=== PATIENT | male | born 1955 | race Caucasian/White ===

== ENCOUNTER 2017-10-25 09:40 | Observation (INO) | payer BC ==
[~2017-10-25] VITALS: Ht 167.6 cm; Wt 77.1 kg
[~2017-10-25 09:40] MED LIST: ACCUPRIL10 MG PO; ACCUPRIL20 MG PO; ASPIRIN ENTERI325 MG PO; ASPIRIN81 MG PO; CARDIZEM60 MG PO; CLOPIDOGREL75 MG PO; CRESTOR10 MG PO; CRESTOR20 MG PO; ENOXAPARIN60 MG/0.6 SQ; JANUVIA25 MG PO; LEVEMIR100 UNIT/1 SC; METFORMIN HCL500 MG PO; METOPROLOL TART50 MG PO; MULTAQ 400MG T400 MG PO; PLAVIX75 MG PO; PREVACID30 MG PO; SOTALOL80 MG PO; ULTRAM50 MG PO
[2017-10-25] MEDS ORDERED: SODIUM CHLORIDE 0.9% 1000ML 1,000 ML IV ONE (10:00)
[2017-10-25 10:18] LABS: EOSINOPHILS # (AUTO) 0.1 (0.0-0.4); EOSINOPHILS % 1.1 % (0.0-6.0); HEMATOCRIT 15.2 % (38.2-49.6); LYMPHOCYTES # (AUTO) 1.1 (1.0-3.2); LYMPHOCYTES % 22.8 % (18.0-39.1); MEAN CORPUSCULAR HEMOGLOBIN 31.4 pg (28-32); MEAN CORPUSCULAR HGB CONC 32.9 g/dL (31-35); MEAN CORPUSCULAR VOLUME 95.6 fL (81-99); MONOCYTES # (AUTO) 0.4 (0.2-0.8); NEUTROPHILS # (AUTO) 3.1 (2.1-6.9); NEUTROPHILS % 66.4 % (38.7-80.0); PLATELET COUNT 79 x10e3/uL (140-360); RED BLOOD COUNT 1.59 x10e6/uL (4.3-5.7); RED CELL DISTRIBUTION WIDTH 12.9 % (11.7-14.4)
[2017-10-25] MEDS ORDERED: FERROUS SULFAT325 MG PO (10:18)
[2017-10-25] MEDS ORDERED: ATORVASTATIN CA20 MG PO (10:19)
[2017-10-25 10:25] LABS: INR 1.06; PROTHROMBIN TIME 14.4 seconds (11.9-14.5)
[2017-10-25 10:26] LABS: PARTIAL THROMBOPLASTIN TIME 24.1 seconds (23.8-35.5)
[2017-10-25 10:33] LABS: ALANINE AMINOTRANSFERASE 22 IU/L (0-55); ALBUMIN 3.1 g/dL (3.5-5.0); ALBUMIN/GLOBULIN RATIO 1.2 (0.8-2.0); ALKALINE PHOSPHATASE 52 IU/L (40-150); ANION GAP 12.4 mmol/L (8-16); BLOOD UREA NITROGEN 37 mg/dL (7-26); BUN/CREATININE RATIO 46 (6-25); CALCIUM 8.5 mg/dL (8.4-10.2); CARBON DIOXIDE 21 mmol/L (22-29); CHLORIDE 109 mmol/L (98-107); CREATININE, SERUM 0.81 mg/dL (0.72-1.25); EST GLOMERULAR FILTRATION RATE > 60 ML/MIN (60-); GLUCOSE 201 mg/dL (74-118); POTASSIUM 4.4 mmol/L (3.5-5.1); SODIUM 138 mmol/L (136-145)
[2017-10-25 10:38] LABS: TROPONIN I 0.059 ng/mL (0-0.300)
[2017-10-25] MEDS: ONDANSETRON HCL INJ 2 MG/ML VIAL IV STA ×2 (11:00→12:40)
[2017-10-25] MEDS ORDERED: PANTOPRAZOLE 40 MG 10ML VIAL IV ONE (11:06)
[2017-10-25] MEDS ORDERED: PANTOPRAZOLE INJ 80 MG in SODIUM CHLORIDE 0.9% 100 ML IV SCH (11:15)
[2017-10-25] MEDS ORDERED: PANTOPRAZOLE INJ 40 MG in SODIUM CHLORIDE 0.9% 50ML 50 ML IV SCH (11:15)
[2017-10-25] MEDS: SODIUM CHLORIDE 0.9% 1000ML 1,000 ML IV SCH ×2 (12:43→20:49)
[2017-10-25] MEDS: PANTOPRAZOLE INJ 40 MG in SODIUM CHLORIDE 0.9% 50ML 50 ML IV SCH ×3 (12:45→23:53)
[2017-10-25] MEDS ORDERED: SODIUM CHLORIDE 0.9% 250ML 250 ML ONE ×2 (13:48→21:53)
[2017-10-25 20:14] VITALS: BP 104/59
[2017-10-25 20:58] LABS: HEMATOCRIT 18.6 % (38.2-49.6); HEMOGLOBIN 6.5 g/dL (14.0-18.0)
[2017-10-26 03:15] VITALS: BP 125/58
[2017-10-26] MEDS: SODIUM CHLORIDE 0.9% 1000ML 1,000 ML IV SCH ×3 (03:43→18:39)
[2017-10-26] MEDS: PANTOPRAZOLE INJ 40 MG in SODIUM CHLORIDE 0.9% 50ML 50 ML IV SCH ×5 (04:29→22:17)
[2017-10-26 06:13] LABS: BASOPHILS % 0.3 % (0.0-1.0); EOSINOPHILS # (AUTO) 0.2 (0.0-0.4); EOSINOPHILS % 1.5 % (0.0-6.0); LYMPHOCYTES # (AUTO) 1.5 (1.0-3.2); LYMPHOCYTES % 14.1 % (18.0-39.1); MEAN CORPUSCULAR HEMOGLOBIN 29.4 pg (28-32); MEAN CORPUSCULAR HGB CONC 33.2 g/dL (31-35); MEAN CORPUSCULAR VOLUME 88.6 fL (81-99); MONOCYTES # (AUTO) 1.1 (0.2-0.8); MONOCYTES % 9.9 % (4.4-11.3); NEUTROPHILS # (AUTO) 7.5 (2.1-6.9); PLATELET COUNT 271 x10e3/uL (140-360); RED BLOOD COUNT 2.45 x10e6/uL (4.3-5.7); RED CELL DISTRIBUTION WIDTH 16.9 % (11.7-14.4); RETICULOCYTE % 3.5 % (0.8-2.2)
[2017-10-26 06:27] LABS: HEMATOCRIT 21.7 % (38.2-49.6); HEMOGLOBIN 7.2 g/dL (14.0-18.0)
[2017-10-26 06:56] LABS: FERRITIN 47.28 ng/mL (21.81-274.66); FREE T4 (FREE THYROXINE) 0.83 ng/dL (0.8-1.8); THYROID STIMULATING HORMONE 1.791 uIU/mL (0.350-4.940)
[2017-10-26] MEDS ORDERED: DIATRIZOATE MEGL/DIATRIZOA SOD 30 ML BTL PO ONE (06:59)
[2017-10-26 07:36] LABS: BAND NEUTROPHILS % (MANUAL) 3 %; EOSINOPHILS % (MANUAL) 3 % (0-7); LYMPHOCYTES % (MANUAL) 12 % (19-48); METAMYELOCYTES % (MANUAL) 1 % (0-0); MONOCYTES % (MANUAL) 2 % (3.4-9.0); MYELOCYTES % (MANUAL) 1 % (0-0); NEUTROPHILS % (MANUAL) 78 % (40-74); NUCLEATED RED BLOOD CELLS 2
[2017-10-26 07:37] LABS: ANISOCYTOSIS SLIG; POIKILOCYTOSIS SLIGHT; RBC MORPHOLOGY COMMENT NORMAL
[2017-10-26 07:38] LABS: PLATELET ESTIMATE ADEQUATE; PLATELET MORPHOLOGY COMMENT NORMAL
[2017-10-26] MEDS ORDERED: DEXTROSE 50% SYRINGE 50 ML IV PRN ×2 (08:00→08:30)
[2017-10-26 08:05] LABS: HIV 1&2 AB SCREEN NON-REACTIVE (NONREACTIVE)
[2017-10-26 08:45] LABS: FOLATE 13.9 ng/mL (7.0-15.4)
[2017-10-26] MEDS: FERROUS SULFATE 325 MG TAB PO SCH ×2 (10:03→18:19)
[2017-10-26] MEDS: QUINAPRIL HCL 20 MG TAB PO SCH (10:03)
[2017-10-26] MEDS: INSULIN DETEMIR 100 UNIT/ML PEN SQ SCH (10:06)
[2017-10-26 10:07] VITALS: BP 117/61
[2017-10-26] MEDS: SOTALOL HCL 80 MG TAB PO SCH ×2 (10:07→18:19)
--- NOTE | 2017-10-26 10:14 | Diagnostic Imaging Report ---
PROCEDURE: CT ABDOMEN AND PELVIS WITHOUT CONTRAST TECHNIQUE: The abdomen and pelvis were scanned utilizing a multidetector helical scanner from the diaphragm to the lesser trochanter after the oral administration of Gastroview and water. No IV contrast was administered as per physician request. Coronal and sagittal multiplanar reformations were obtained. COMPARISON: None. INDICATIONS: ANEMIA FINDINGS: ABSENCE OF INTRAVENOUS CONTRAST DECREASES SENSITIVITY FOR DETECTION OF FOCAL LESIONS AND VASCULAR PATHOLOGY. LOWER THORAX: Bibasilar atelectasis. Partial visualized cardiac pacing leads. HEPATOBILIARY: No focal hepatic lesions. No biliary ductal dilatation. SPLEEN: No splenomegaly. PANCREAS: No focal masses or ductal dilatation. ADRENALS: No adrenal nodules. KIDNEYS/URETERS: No hydronephrosis, stones, or solid mass lesions. Bilateral perinephric soft tissue inflammatory changes. PELVIC ORGANS/BLADDER: Unremarkable. PERITONEUM / RETROPERITONEUM: No free air or fluid. LYMPH NODES: No lymphadenopathy. VESSELS: Aortoiliac atherosclerotic calcifications. Bilateral renal artery calcifications. Left external iliac artery stent. GI TRACT: No distention or wall thickening. No appendix is visualized. Moderate amount of retained feces limit intraluminal evaluation of the colon. No air-fluid levels. No appendix is visualized. BONES AND SOFT TISSUES: Degenerative changes of the lumbar spine. IMPRESSION: No acute abnormality of the abdomen and pelvis. Dictated by: David Zaldivar M.D. on 10/26/2017 at 10:23 Electronically approved by: David Zaldivar M.D. on 10/26/2017 at 10:23
[2017-10-26] MEDS ORDERED: SODIUM CHLORIDE 0.9% 250ML 250 ML ONE ×3 (10:53→19:47)
[2017-10-26] MEDS: INSULIN REGULAR, HUMAN 100 UNIT/1 ML 3ML VIAL SQ SCH ×6 (11:30→21:16)
--- NOTE | 2017-10-26 12:59 | History and Physical ---
PRIMARY CARE PHYSICIAN: Dr. Jatinder Pires. CHIEF COMPLAINT: Passing out. HISTORY OF PRESENT ILLNESS: This is a 62-year-old man with a history of severe anemia requiring blood transfusion, last transfusion about 3 years ago, with multiple endoscopies including pill endoscopy, all being negative and now passing out at home. Patient stated that he passed out for a few seconds, did not hit his head, brought to the hospital, found to have hemoglobin of 5.0, and he was transfused blood. He denies any chest pain, denies any melena, and denies any hematochezia. He does take iron pills, which he has been taking for several years. Denies any hematochezia or active blood loss. I will update further dictation to his deboner Dr. Garcia. PAST MEDICAL HISTORY: Severe anemia, hypertension, history of PE, myocardial infarction status post coronary artery bypass grafting and stents in 2016, peripheral vascular disease status post stents, paroxysmal arterial fibrillation, acute kidney injury, and sick sinus syndrome status post permanent pacemaker placement. PAST SURGICAL HISTORY: Permanent pacemaker placement, coronary artery stenting, and peripheral artery stenting. ALLERGIES: PER ELECTRONIC MEDICAL RECORDS. FAMILY HISTORY/SOCIAL HISTORY: Patient is single. He has no alcohol or illicit. He quit cigarettes. MEDICATIONS: Per electronic medical record. REVIEW OF SYSTEMS: Denies any dizziness or chest pain. PHYSICAL EXAMINATION VITAL SIGNS: Reviewed. GENERAL: A tired-appearing man resting in bed. HEENT: Anicteric. Pupils responsive to light. No oral lesions. CARDIOVASCULAR: Normal S1 and S2. LUNGS: Moderate breath sounds. ABDOMEN: Soft, nontender, and nondistended. EXTREMITIES: No edema or calf tenderness. NEUROLOGIC: He is alert and oriented x3. He moved all extremities. SKIN: Dry. PSYCHIATRIC: Flat affect. LABS: Reviewed. MEDICATIONS: Reviewed. ASSESSMENT AND PLAN: This is a 62-year-old man with: 1. Syncope, unclear whether patient lost consciousness, but definitely symptoms would have been related to severe anemia. We will transfuse him now and get physical therapy on board. We will also obtain a 2D echocardiogram to evaluate his heart function. 2. Cerebrovascular accident, normocytic anemia, hemoglobin 5.0. He received blood transfusion 3 units, re-tested, and is 7.2. We will consult Dr. Garcia, his deboner. We will continue IV PPI drip. We will hold aspirin and we will hold Plavix. 3. Diabetes mellitus type 2. We will get his hemoglobin A1c and lipid panel. We will hold all anti-glycemic agents. 4. Paroxysmal atrial fibrillation. Heart rate is currently controlled. We will monitor. We will continue sotalol. 5. Hypertension. He is on quinapril. 6. Positive stool occult blood. GI consultation. 1. Follow up hepatitis panel and other serologic tests. 2. Prophylaxis. He will be on sequential compression devices and he is on IV PPI. Job#: [id number] VAS
[2017-10-26] MEDS ORDERED: ACETAMINOPHEN 325 MG TAB PO PRN (15:45)
[2017-10-26 16:06] VITALS: BP 117/61
[2017-10-26 16:17] VITALS: BP 117/61
[2017-10-26 17:26] VITALS: BP 129/58
[2017-10-26] MEDS ORDERED: ATORVASTATIN 20 MG TAB PO SCH (21:00)
[2017-10-27 00:40] LABS: HEMATOCRIT 27.3 % (38.2-49.6); HEMOGLOBIN 9.6 g/dL (14.0-18.0)
[2017-10-27] MEDS: PANTOPRAZOLE INJ 40 MG in SODIUM CHLORIDE 0.9% 50ML 50 ML IV SCH ×2 (00:40→10:25)
[2017-10-27] MEDS: SODIUM CHLORIDE 0.9% 1000ML 1,000 ML IV SCH ×4 (02:45→23:30)
[2017-10-27 06:22] LABS: HEMATOCRIT 26.6 % (38.2-49.6); HEMOGLOBIN 9.2 g/dL (14.0-18.0)
[2017-10-27] MEDS: FERROUS SULFATE 325 MG TAB PO SCH (09:10)
[2017-10-27] MEDS: INSULIN REGULAR, HUMAN 100 UNIT/1 ML 3ML VIAL SQ SCH ×4 (09:10→21:50)
[2017-10-27] MEDS: QUINAPRIL HCL 20 MG TAB PO SCH (09:10)
[2017-10-27] MEDS: INSULIN DETEMIR 100 UNIT/ML PEN SQ SCH (09:11)
[2017-10-27] MEDS: SOTALOL HCL 80 MG TAB PO SCH (09:11)
[2017-10-27] MEDS ORDERED: SODIUM CHLORIDE 0.9% 500ML 500 ML ONE (14:22)
[2017-10-27] MEDS ORDERED: DEXTROSE 50% SYRINGE 50 ML IV PRN (15:30)
[2017-10-27] MEDS ORDERED: ACETAMINOPHEN 325 MG TAB PO PRN (15:30)
[2017-10-27] MEDS: PANTOPRAZOL 40MG/SOD CHL 0.9% 50 ML IV SCH ×2 (15:32→20:35)
--- NOTE | 2017-10-27 16:43 | Operative Report ---
DATE OF PROCEDURE: October 27, 2017 PROCEDURE PERFORMED: Esophagogastroduodenoscopy. PREOPERATIVE DIAGNOSIS: Gastrointestinal bleeding. POSTOPERATIVE DIAGNOSES 1. Hiatal hernia. 2. Reflux esophagitis. 3. Gastritis with several small erosions. No blood is present in the esophagus, stomach, or duodenum. No bleeding lesions including Dieulafoy lesions were found. No angiodysplasia was seen in the small intestines. PREOPERATIVE MEDICATIONS: Consisted of general anesthesia. DESCRIPTION OF PROCEDURE: Using the Olympus PixelFlow video gastroscope, it was inserted into the patient's oropharynx and advanced to the hypopharynx and down into the esophagus. The mucosa found in the esophagus was normal until we got to the GE junction. Little bit of irritation right there from reflux right above a sliding-type hiatal hernia at 40-41 cm. The stomach was entered and insufflated with air. The mucosa around the cardia, fundus, body, and the antrum was viewed. There was evidence of a gastritis with small erosions in the antrum but overall no significant ulcerations, bleeding lesions, or tumor masses were encountered. Biopsy was obtained down in the antrum looking for the H. pylori infection. The motility was normal. The pylorus was visualized and entered. The duodenal bulb and postbulbar duodenum were found to be within normal limits. There was no evidence of any angiodysplasia found. No blood was present down in the duodenum. The endoscope was withdrawn back up into the stomach, retroflexed viewing the EG junction, cardia, and fundus from below. Again, the hiatal hernia was seen as well as the gastritis, but no other disease process was encountered. The gastroscope was withdrawn back up into the esophagus, hypopharynx, oropharynx, and the patient's mouth, and the procedure was ended. In conclusion, we have no evidence of an acute GI bleed. We have gastritis with small erosions throughout the stomach. No evidence of any bleeding. We have a hiatal hernia with a small amount of reflux esophagitis and a normal duodenum. Job#: [id number] CYNDI
[2017-10-27] MEDS ORDERED: FERROUS SULFATE 325 MG TAB PO SCH (17:00)
[2017-10-27] MEDS ORDERED: SOTALOL HCL 80 MG TAB PO SCH (17:00)
[2017-10-27 17:01] VITALS: BP 129/61
[2017-10-27 17:12] VITALS: BP 129/61
[2017-10-27] MEDS ORDERED: MIDAZOLAM HCL 2 MG/2 ML VIAL ONE (17:40)
[2017-10-27 18:09] LABS: HEMATOCRIT 27.2 % (38.2-49.6); HEMOGLOBIN 9.2 g/dL (14.0-18.0)
[2017-10-27 20:00] VITALS: BP 104/55
[2017-10-27] MEDS ORDERED: ATORVASTATIN 20 MG TAB PO SCH (21:00)
[2017-10-27 22:20] LABS: HEMOGLOBIN 10.6 g/dL (14.0-18.0)
[2017-10-28] VITALS: BP 11/59
[2017-10-28] MEDS: PANTOPRAZOL 40MG/SOD CHL 0.9% 50 ML IV SCH ×2 (01:46→05:53)
[2017-10-28 04:00] VITALS: BP 106/53
[2017-10-28] MEDS: SODIUM CHLORIDE 0.9% 1000ML 1,000 ML IV SCH (05:53)
[2017-10-28 06:55] LABS: BASOPHILS % 0.5 % (0.0-1.0); EOSINOPHILS # (AUTO) 0.2 (0.0-0.4); EOSINOPHILS % 2.6 % (0.0-6.0); HEMATOCRIT 29.6 % (38.2-49.6); LYMPHOCYTES % 11.9 % (18.0-39.1); MEAN CORPUSCULAR HEMOGLOBIN 30.3 pg (28-32); MEAN CORPUSCULAR HGB CONC 33.8 g/dL (31-35); MEAN CORPUSCULAR VOLUME 89.7 fL (81-99); MONOCYTES # (AUTO) 0.9 (0.2-0.8); NEUTROPHILS # (AUTO) 6.3 (2.1-6.9); NEUTROPHILS % 73.2 % (38.7-80.0); PLATELET COUNT 262 x10e3/uL (140-360); RED CELL DISTRIBUTION WIDTH 17.9 % (11.7-14.4)
[2017-10-28 07:23] LABS: BLOOD UREA NITROGEN 13 mg/dL (7-26); BUN/CREATININE RATIO 17 (6-25); CALCIUM 8.3 mg/dL (8.4-10.2); CARBON DIOXIDE 22 mmol/L (22-29); CHLORIDE 113 mmol/L (98-107); CREATININE, SERUM 0.78 mg/dL (0.72-1.25); EST GLOMERULAR FILTRATION RATE > 60 ML/MIN (60-); GLUCOSE 138 mg/dL (74-118); SODIUM 143 mmol/L (136-145)
[2017-10-28 08:25] VITALS: BP 130/60
[2017-10-28] MEDS ORDERED: INSULIN DETEMIR 100 UNIT/ML PEN SQ SCH ×2 (09:00→10:24)
[2017-10-28] MEDS ORDERED: QUINAPRIL HCL 20 MG TAB PO SCH ×3 (09:00→10:23)
[2017-10-28 11:41] VITALS: BP 153/68
[2017-10-28] MEDS ORDERED: DEXTROSE 50% SYRINGE 50 ML IV PRN (12:30)
[2017-10-28] MEDS ORDERED: ACETAMINOPHEN 325 MG TAB PO PRN (12:45)
[2017-10-28 13:00] LABS: HEMOGLOBIN 10.3 g/dL (14.0-18.0)
[2017-10-28] MEDS: INSULIN REGULAR, HUMAN 100 UNIT/1 ML 3ML VIAL SQ SCH ×2 (13:02→17:02)
[2017-10-28 15:15] VITALS: BP 124/59
[2017-10-28] MEDS ORDERED: FERROUS SULFATE 325 MG TAB PO SCH (17:00)
[2017-10-28] MEDS ORDERED: SOTALOL HCL 80 MG TAB PO SCH ×2 (17:00)
[2017-10-28] MEDS ORDERED: ATORVASTATIN 20 MG TAB PO SCH (21:00)
--- NOTE | 2017-10-29 00:09 | Progress Note ---
DATE: No dictation (length 00:14). Job#: [id number] GE
--- NOTE | 2017-10-29 00:12 | Discharge Summary ---
PCP: Dr. Treva Pires MACHINIST CLASS B: Dr. Sandip Mccarty, Dr. Brian Garcia. Patient came in initially with anemia and possible GI bleed. Patient was seen by Dr. Garcia, and was started on Protonix IV drip. Colonoscopy will not be able to be done due to the patient is on Plavix, and needs to be at least 7-10 days off Plavix before he can proceed to do a colonoscopy. Therefore, Dr. Garcia has cleared him to be discharged and follow up with him as an outpatient. Dr. Mccarty has also cleared him for discharge. Patient did receive blood transfusion. Patient has a long-standing history of CABG, CAD, sick sinus syndrome, pacemaker, anemia, hypertension, DVT with status post stent placement. Patient has responded well to medical management. PHYSICAL EXAMINATION VITALS: Today's vital signs are temperature 98.1, pulse 70, blood pressure 130/60, respirations 18, and satting 96% on room air. GENERAL: Patient is awake, alert and oriented times 3. LUNGS: Clear to auscultation bilaterally with normal respiratory effort. HEENT: Extraocular muscles are intact. ABDOMEN: Soft. Bowel sounds present. It is nontender and nondistended. CARDIOVASCULAR: Regular rate and rhythm. NECK: Supple. Trachea midline. EXTREMITIES: No calf tenderness. NEUROLOGICAL: Nonfocal. LABS: Sodium 143, potassium 4, chloride 113, CO2 22, BUN 13, creatinine 0.78, glucose 138. White count 8.52, hemoglobin 10, hematocrit 29.6, and platelets 262,000. DISCHARGE DIAGNOSES 1. Syncope secondary to anemia. 2. Diabetes mellitus, type 2. 3. Atrial fibrillation. DICTATED BY ROSS PORTILLO NP TREVA BRENNAN MD Job#: [id number] MEE
[2017-10-29] MEDS ORDERED: INSULIN DETEMIR 100 UNIT/ML PEN SQ SCH ×2 (09:00)
--- NOTE | 2017-10-31 13:51 | Consultation ---
DATE OF CONSULTATION: October 26, 2017 CONSULTATION TO: Dr. Steven Guy is a 62-year-old white male who was referred to me for evaluation of anemia. No history of hematochezia, melena, hematuria, hematemesis or hemoptysis. The patient claims that he had multiple upper endoscopies and lower endoscopies including camera; however, nothing was ever recorded to be positive. Subsequently brought as the patient's hemoglobin was 7.2. SOCIAL HISTORY: Noncontributory. FAMILY HISTORY: Noncontributory. ALLERGIES: NONE. MEDICATIONS AT THIS TIME 1. Protonix. 2. Atorvastatin. 3. Quinapril. 4. Sotalol. 5. Insulin. 6. Ferrous sulfate. REVIEW OF SYSTEMS HEENT: Normal. CARDIAC: History of hypertension. History of CABG. RESPIRATORY: History of PE. GI: Multiple GI bleeds. : Normal. MUSCULOSKELETAL: Normal. SKIN AND BREASTS: Normal. NEUROENDOCRINE: History of diabetes mellitus. PHYSICAL EXAMINATION GENERAL: Moderately built male. Anemic. No palpable adenopathy. HEART: Within normal limits. CHEST: Midline scar of surgery over the chest is seen. Pacemaker is seen. ABDOMEN: Soft. There is no hepatosplenomegaly. RECTAL: Exam deferred. CENTRAL NERVOUS SYSTEM: Essentially normal. EXTREMITIES: Essentially normal. LABORATORY DATA: Hemoglobin of 7.2, hematocrit 21.7, white count 10,800, platelets of 271,000. Indices still remain normal. INR 1.06. Bilirubin 0.3, SGOT 19, alkaline phosphatase 52, SGPT 22. Sodium 138, potassium 4.4, chloride 79, CO2 21, BUN 37, creatinine 0.8. Glucose high at 201. Stool for occult blood is positive. IMPRESSION 1. Anemia, normochromic and normocytic. 2. History of hypertension. 3. History of pulmonary embolus. 4. History of coronary artery bypass graft. 5. History of coronary stents. 6. History of atrial fibrillation. 7. History of pacemaker insertion. 8. Hypoproteinemia (5.7). 9. Hypoalbuminemia (3.1). 10. Diabetes mellitus insulin dependent. 11. Gastrointestinal bleed. Stool for occult blood positive. 12. 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 PLAN: Give him blood transfusion to keep the hemoglobin above 8 to 9 g. Upper endoscopy definitely is suggested. The bleeding is possibly because of AVM. He also has to take Plavix for the stenting which he had. I will confine myself to hematology. Job#: [id number] cc:MD SHERWIN [place]TA[place] M.D.
== END 2017-10-28 18:40 | disposition home or self-care (01) ==
LOC: ER 09:40 → ERHOLD 11:31 → UNDOADMIN 11:31 → OR 10-27 11:29 → UNDOADMOB 10-27 13:35 → IMCU 10-27 13:35
PROVIDERS: ADMIT Internal Medicine; ATTEND Internal Medicine
DX: D64.9 Anemia, unspecified (principal); K29.00 Acute gastritis without bleeding; K21.0 Gastro-esophageal reflux disease with esophagitis; K44.9 Diaphragmatic hernia without obstruction or gangrene; K92.2 Gastrointestinal hemorrhage, unspecified; Z86.711 Personal history of pulmonary embolism; I25.2 Old myocardial infarction; I48.0 Paroxysmal atrial fibrillation; Z95.1 Presence of aortocoronary bypass graft; I73.9 Peripheral vascular disease, unspecified; Z95.0 Presence of cardiac pacemaker; R55 Syncope and collapse; Z86.73 Personal history of transient ischemic attack (TIA), and cerebral infarction without residual deficits; E11.9 Type 2 diabetes mellitus without complications; I10 Essential (primary) hypertension; E77.8 Other disorders of glycoprotein metabolism; E88.09 Other disorders of plasma-protein metabolism, not elsewhere classified; Z79.4 Long term (current) use of insulin; Z79.01 Long term (current) use of anticoagulants; D69.6 Thrombocytopenia, unspecified
CPT/HCPCS: 36430; 43239; P9016; 36415; 74176; 80048; 80053; 82270; 82607; 82728; 82746; 82948; 83036; 83540; 84439; 84443; 84466; 84484; 85014; 85018; 85025; 85045; 85610; 85730; 86039; 86431; 86704; 86706; 86803; 86850; 86900; 86920; 86922; 87340; 87390; 88305; 88312; 93005; 93306; 96360; 96374; 99284; G0378; G0433; G0435; J2250; J2405; J7030; J7040; J7050

== ENCOUNTER 2018-03-10 10:31 | Observation (INO) | payer BC ==
[2018-03-10] VITALS (14 sets, daily range): BP systolic 120–152; BP diastolic 65–85
[~2018-03-10] VITALS: Ht 167.6 cm; Wt 85.0 kg
[~2018-03-10 10:31] MED LIST changes: +ATORVASTATIN CA20 MG PO; +FERROUS SULFAT325 MG PO
--- OUTSIDE RECORDS SUMMARY | 2018-03-10 10:33 | XMS REPORT ---
Author Author [facility] Address Unknown Phone Unavailable Care Team Providers Care Director Child Abuse Therapy Name Role Phone TREVA BRENNAN Unavailable Unavailable Problems This patient has no known problems. Allergies, Adverse Reactions, Alerts This patient has no known allergies or adverse reactions. Medications This patient has no known medications. Results Test Description Test Time Test Comments Text Results Atomic Results Result Comments CT ABDOMEN/PELVIS WO [place] [address] Patient Name: ANH RANGEL MR #: [id number] : 1955 Age/Sex: 62/M Req #: [id number] Adm Physician: TREVA BRENNAN MD Ordered by: JHONY TORIBIO MD Report #: [id number] Location: [facility] Room/Bed: [place] [address] _ Procedure: [id number] CT/CT ABDOMEN/PELVIS WO Exam Date: 10/26/17 Exam Time: 0825 REPORT STATUS: Signed PROCEDURE: CT ABDOMEN AND PELVIS WITHOUT CONTRAST TECHNIQUE: The abdomen and pelvis were scanned utilizing a multidetector helical scanner from the diaphragm to the lesser trochanter after the oral administration of Gastroview and water. No IV contrast was administered as per physician request. Coronal and sagittal multiplanar reformations were obtained. COMPARISON: None. INDICATIONS: ANEMIA FINDINGS: ABSENCE OF INTRAVENOUS CONTRAST DECREASES SENSITIVITY FOR DETECTION OF FOCAL LESIONS AND VASCULAR PATHOLOGY. LOWER THORAX: Bibasilar atelectasis. Partial visualized cardiac pacing leads. HEPATOBILIARY: No focal hepatic lesions. No biliary ductal dilatation. SPLEEN: No splenomegaly. PANCREAS: No focal masses or ductal dilatation. ADRENALS: No adrenal nodules. KIDNEYS/URETERS: No hydronephrosis, stones, or solid mass lesions. Bilateral perinephric soft tissue inflammatory changes. PELVIC ORGANS/BLADDER: Unremarkable. PERITONEUM / RETROPERITONEUM: No free air or fluid. LYMPH NODES: No lymphadenopathy. VESSELS: Aortoiliac atherosclerotic calcifications. Bilateral renal artery calcifications. Left external iliac artery stent. GI TRACT: No distention or wall thickening. No appendix is visualized. Moderate amount of retained feces limit intraluminal evaluation of the colon. No air-fluid levels. No appendix is visualized. BONES AND SOFT TISSUES: Degenerative changes of the lumbar spine. IMPRESSION: No acute abnormality of the abdomen and pelvis. Dictated by: Yaquelin Trejo M.D. on 10/26/2017 at 10:23 Electronically approved by: Yaquelin Trejo M.D. on 10/26/2017 at 10:23 Dictated By: YAQUELIN TREJO MD 1023 Transcribed By: JUANCARLOS on 10/26/17 1023 COPY TO: JHONY TORIBIO MD
--- OUTSIDE RECORDS SUMMARY | 2018-03-10 10:33 | XMS REPORT | Clinical Summary ---
Author Author [facility] [employer] [facility] Address Unknown Phone Unavailable Care Team Providers Care Underwater Welder Name Role Phone PCP Unavailable Allergies No Known Allergies Current Medications Prescription Sig. Disp. Refills Start End Date Status Date metFORMIN (GLUCOPHAGE) Take 1,000 mg by mouth 2 Active 1000 MG tablet (two) times daily with breakfast and dinner. clopidogrel (PLAVIX) 75 Take 75 mg by mouth daily Active mg tablet Last dose taken April 23, 2016 . aspirin 81 MG EC tablet Take 81 mg by mouth Active daily. rosuvastatin (CRESTOR) 20 Take 20 mg by mouth Active MG tablet daily. metoprolol (LOPRESSOR) 50 Take 50 mg by mouth 2 Active MG tablet (two) times daily. quinapril (ACCUPRIL) 20 Take 20 mg by mouth daily Active MG tablet . sitaGLIPtin (JANUVIA) 100 Take 100 mg by mouth Active MG tablet daily. nitroglycerin (NITROSTAT) Place 0.4 mg under the Active 0.4 MG SL tablet tongue every 5 (five) minutes as needed for Chest pain Put 1 pill under tongue every 5min as needed for chest pain.No more than 3 doses in 15min.Call 911 if pain is unrelieved 5min after 1st dose . insulin detemir (LEVEMIR) Inject 10 Units Active 100 unit/mL (3 mL) InPn subcutaneously nightly. injection dronedarone (MULTAQ) 400 Take 1 tablet (400 mg 60 tablet 1 05/17/20 Active mg tablet total) by mouth 2 (two) 16 times daily with breakfast and dinner. diltiazem (CARDIZEM) 60 Take 1 tablet (60 mg 120 tablet 1 05/17/05/17/20 MG tablet total) by mouth every 6 16 17 (six) hours. furosemide (LASIX) 40 MG Take 1 tablet (40 mg 30 tablet 1 05/17/20 05/17/20 tablet total) by mouth daily. 16 17 Active Problems Problem Noted Date Atrial fibrillation ([facility]) 05/12/2016 Postoperative anemia 05/12/2016 Coronary artery disease of [place] artery of [place] heart with stable angina 05/01/2016 pectoris ([facility]) Insulin dependent diabetes mellitus ([facility]) 05/01/2016 Angina of effort ([facility]) 05/01/2016 H/O non-ST elevation myocardial infarction (NSTEMI) 05/01/2016 PVD (peripheral vascular disease) ([facility]) 05/01/2016 Essential hypertension 05/01/2016 Social History Tobacco Use Types Packs/Day Years Used Date Former Smoker 1 5 05/01/2010 - 10/01/2015 Smokeless Tobacco: Never Used Alcohol Use Drinks/Week oz/Week Comments Yes 3 Cans of 1.8 beer Sex Assigned at Date Recorded Not on file Last Filed Vital Signs Not on file Plan of Treatment Health Maintenance Due Date Last Done Comments INFLUENZA VACCINE 07/19/2018 Results Not on fileafter 03/09/2017
[2018-03-10] MEDS ORDERED: LIDOCAINE HCL 2% LOCAL 20 ML VIAL ONE (11:44)
[2018-03-10] MEDS ORDERED: FAMOTIDINE 20 MG TAB ONE (11:44)
[2018-03-10] MEDS ORDERED: LORAZEPAM INJ 2 MG/ML VIAL ONE (11:44)
[2018-03-10] MEDS ORDERED: SODIUM CHLORIDE 0.9% 1000ML 1,000 ML ONE ×2 (11:45→15:02)
[2018-03-10] MEDS ORDERED: MIDAZOLAM HCL 2 MG/2 ML VIAL ONE ×2 (11:45→14:10)
[2018-03-10] MEDS ORDERED: HEPARIN SOD/SOD CHLORIDE 2,000 ML ONE (11:45)
[2018-03-10] MEDS ORDERED: IOPAMIDOL 300MG/ML 100 ML INFUS..BTL IV ONE ×3 (11:45→13:00)
[2018-03-10] MEDS ORDERED: FENTANYL CITRATE/PF 100MCG/2 ML INJ ONE (11:46)
[2018-03-10] MEDS ORDERED: NITROGLYCERIN/D5W 200 MCG/ML 0 ML ONE (13:16)
[2018-03-10] MEDS ORDERED: HEPARIN SOD (PORCINE) 1000 UNIT/ML 30ML ONE (13:16)
[2018-03-10] MEDS ORDERED: BIVALIRUDIN 250 MG/VIAL IV ONE (13:20)
[2018-03-10] MEDS ORDERED: SODIUM CHLORIDE 0.9% 50ML 50 ML ONE (13:21)
[2018-03-10] MEDS ORDERED: CEFAZOLIN SOD 1 GM VIAL ONE (14:31)
[2018-03-10] MEDS ORDERED: ASPIRIN 81 MG CHEW TAB ONE (14:39)
[2018-03-10] MEDS ORDERED: CLOPIDOGREL BISULFATE 75 MG TAB ONE (14:39)
[2018-03-10] MEDS ORDERED: NITROGLYCERIN 400 MCG/SPRAY 4.9 GM BTL ONE (14:41)
[2018-03-10] MEDS ORDERED: DEXTROSE 5%/0.225% SOD CHL 1,000 ML IV SCH (15:00)
--- OUTSIDE RECORDS SUMMARY | 2018-03-10 17:35 | XMS REPORT | Clinical Summary ---
Author Author [facility] [facility] Address Unknown Phone Unavailable Care Team Providers Care Cannery Tender Engineer Name Role Phone PCP Unavailable Allergies No [...] Active Problems Problem Noted Date Atrial fibrillation ([facility]) 05/12/2016 Postoperative anemia 05/12/2016 Coronary artery disease of [place] artery of [place] heart with stable angina 05/01/2016 pectoris ([facility]) Insulin dependent diabetes mellitus ([facility]) 05/01/2016 Angina of effort ([facility]) 05/01/2016 H/O non-ST elevation myocardial infarction (NSTEMI) 05/01/2016 PVD (peripheral vascular disease) ([facility]) 05/01/2016 Essential hypertension 05/01/2016 Social History [...]
[2018-03-11] VITALS: BP 129/62
[2018-03-11] MEDS ORDERED: SODIUM CHLORIDE 0.9% 1000ML 1,000 ML IV SCH
[2018-03-11] MEDS: HYDROCODONE/APAP 5MG-325MG TAB PO PRN ×2 (00:50→07:10)
[2018-03-11 01:00] VITALS: BP 138/85
[2018-03-11 04:00] VITALS: BP 149/67
[2018-03-11 07:10] VITALS: BP 167/82
--- NOTE | 2018-03-14 13:44 | Operative Report ---
DATE OF PROCEDURE: March 10, 2018 PREOPERATIVE DIAGNOSES 1. Severe peripheral vascular disease with claudication and resting pain of the right lower extremity.. 2. Coronary artery disease. 3. Sick sinus syndrome with permanent pacemaker. 4. Diabetes mellitus. 5. Hyperlipidemia.. PROCEDURES 1. Pelvic angiogram. 2. Right iliofemoral angiogram. 3. Angioplasty and stenting of the right superficial femoral artery. 4. Angiogram of the left iliac femoral artery and angioplasty of the left iliac artery. DESCRIPTION OF PROCEDURE: After the patient had received moderate sedation and prepping and draping was performed, the left inguinal area was infiltrated with local lidocaine. The left femoral artery was approached with micropuncture followed by introduction of a 6-Ecuadorean arterial sheath. Under modified Seldinger technique, a 5-Ecuadorean Omniflush diagnostic angiography catheter was then introduced and positioned in the lower abdominal aorta for pelvic angiogram and with introduction of 0.035 Advantage guidewire the Omniflush catheter was then advanced into the right external iliac artery and the angiogram of the right femoral artery was performed. Review of the diagnostic studies revealed the following: There was a small abdominal aortic aneurysm just above the iliac bifurcation. The right common and external iliac artery showed some mild plaque formation amounting to about 30% stenotic areas. The right superficial femoral artery started with severe stenosis right at the takeoff and subtotal to total occlusion all the way to the area of the Arpit's canal. The distal right femoral artery, popliteal and the tibioperoneal arteries, however, filled through collaterals from the profunda branch. The distal right superficial femoral and ____ had about 30% narrowing. There was no significant stenosis in the tibioperoneal vessels showing a runoff into the region of the foot from the dorsalis pedis and posterior tibial branches without any significant flow impairment. The right superficial femoral artery showed extensive calcification and was also subtotal to total occlusion in the previously placed stent in the mid to distal portion of the right superficial femoral artery. The right common iliac artery showed a segmental narrowing of the more distal segment extending into the proximal portion of the previously placed iliac stent amounting to 50% to 70% stenosis. As seen on the angiogram, there was some mild plaquing in the right common femoral artery. The stent in the left superficial femoral artery was identified and was patent. There was about a 50% stenosis in the mid portion of the left profunda branch with some post traumatic dilatation. After review of the diagnostic study and considering the patient's symptoms, was felt the patient should benefit from intervention. He was started on Angio-Max bolus drip and the 6-Ecuadorean arterial sheath was exchanged with a 6-Ecuadorean [place] Destination cross-over sheath, 45 cm in length over the previously placed Advantage guidewire. The guidewire was able to be advanced without any significant resistance into the right popliteal artery and angioplasty was performed using Lutonix balloon catheter starting at the Arpit's canal and to the proximal portion including the previously placed stent. There appeared to be a successful dilatation of the segment and the same balloon catheter was then advanced more proximal to cover the whole extent of the subtotal occlusion. However, after repeat angiogram it was noted there was still severe intraluminal stenosis along the previously noted subtotal occlusion. Therefore, stenting was necessary and the first LifeStent XL peripheral stent 6 x 170 mm was positioned in the more distal portion and it deployed successfully followed by a 6 x 150 mm LifeStent peripheral stent in the more proximal portion. Post dilatation was performed by using an Ultraverse balloon catheter 5 mm x 200 mm. After completion of the stenting and post dilatation angiogram was performed, which showed a very good result with only mild stenotic area of about 20% at the proximal portion and a 30% focal stenosis in the distal portion. However, there was excellent runoff in some of the areas which showed residual stenosis, but mostly related to the extensive calcification of the vessel. The procedure was then terminated. Restoring the [place] catheter and performing a left inguinal area angiogram in the left anterior oblique position prior to closure of the left femoral artery with Angio-Seal, model Evolution. After adequate hemostasis was achieved, the patient was given 300 mg of Plavix and 81 mg of aspirin per orally and dressing was applied and the patient was transferred to the observation area in stable condition. However, I also need to mention that prior to the closure of the left femoral artery balloon angioplasty of the left iliac artery was also performed because of the significant stenotic areas as described above in the left common iliac artery and the ostial portion of the left the iliac stent. This angioplasty was performed using a 5 mm x 40 mm Ultraverse balloon catheter resulting in an excellent result and there was no residual stenosis. IMPRESSION: 1. Severe peripheral vascular disease with subtotal to total occlusion of the right superficial femoral artery successfully treated with angioplasty and stenting. 2. Severe stenotic area of the left iliac artery and proximal portion of the left iliac stent successfully treated with angioplasty. 3. Small infrarenal abdominal aortic aneurysm which will be followed closely with ultrasound studies and if necessary with using a CT scan. The information was related to the patient and the patient's family and he will be followed closely as outpatient after 24 hour observation and hopefully discharged at that time. Job#: [id number] JT
== END 2018-03-11 11:15 | disposition home or self-care (01) ==
LOC: CATH LAB 10:31 → IMCU 17:32
PROVIDERS: ADMIT Internal Medicine Cardiovascular Disease; ATTEND Internal Medicine Cardiovascular Disease
DX: I70.221 Atherosclerosis of native arteries of extremities with rest pain, right leg (principal); I25.10 Atherosclerotic heart disease of native coronary artery without angina pectoris; Z95.820 Peripheral vascular angioplasty status with implants and grafts; I49.5 Sick sinus syndrome; Z95.0 Presence of cardiac pacemaker; I10 Essential (primary) hypertension; I71.4 Abdominal aortic aneurysm, without rupture; E78.5 Hyperlipidemia, unspecified; E11.9 Type 2 diabetes mellitus without complications; Z88.8 Allergy status to other drugs, medicaments and biological substances; Z79.82 Long term (current) use of aspirin; Z79.4 Long term (current) use of insulin; Z79.02 Long term (current) use of antithrombotics/antiplatelets
CPT/HCPCS: 36415 ×2; 37220; 37226; 77002; 82948 ×2; C1725; C1769 ×2; C1876 ×2; C1887; C2623; G0378 ×2; J0583; J0690; J1644; J2001; J2060; J2250; J7030; Q9967; 36140; 37222

== ENCOUNTER → 2019-09-29 | Day surgery (SDC) | payer BC ==
[2019-09-29] VITALS (9 sets, daily range): BP systolic 112–164; BP diastolic 57–87
[~2019-09-29] VITALS: Ht 167.6 cm; Wt 81.6 kg
[~2019-09-29] MED LIST changes: +CEFAZOLIN SOD 1 GM VIAL ONE; +CILOSTAZOL100 MG PO; +CLONIDINE HCL 0.1 MG TAB ONE; +FAMOTIDINE 20 MG TAB ONE; +FENTANYL CITRATE/PF 100MCG/2 ML INJ ONE; +HEPARIN SOD/SOD CHLORIDE 2,000 ML ONE; +IOPAMIDOL 300MG/ML 100 ML INFUS..BTL IV ONE; +IOPAMIDOL 300MG/ML 50ML INFUS..BTL IV ONE; +LIDOCAINE HCL 2% LOCAL 20 ML VIAL ONE; +LORAZEPAM INJ 2 MG/ML VIAL ONE; +MIDAZOLAM HCL 2 MG/2 ML VIAL ONE; +SODIUM CHLORIDE 0.9% 50ML 50 ML ONE; +SUCRALFATE1 GM PO
--- NOTE | 2019-09-29 16:22 | NUR ---
1622p Received pt to room #10,bedside report received from Elia MALDONADO. Alert oriented and appropriate, PERRLA, respirations even and unlabored to room air. Pulses x4 extremities equal and strong. Pedal pulses PT/DP X4. Cap fill brisk < 3 sec. left Angioseal site intact.No gross issues pain,pallor pressure or dysrhythmia. Skin warm and dry integrity appears D/I IV 20g to left hand presents healthy w/o s/s of infiltration or complaint. Abdomen soft and supple. pt offered toileting, denies need to urinate or defecate. No personal affects with patient. Family at bedside. Pt and family verbalizes understanding of POC. downtime till 7pm. Currently w/o complaint of pain or need. Dr Sebastian at bedside explained POC dc papers instructed and copies to family. CD copied and given to pt Ancef 1gm Ivpb infused.Tolerated po intake. 1730 bp 160 systolic given clonidine 0.1 po with adequate recovery b/p. No gross issues pain,pallor,pressure or dysrhythmia. abdulaziz/ru
--- NOTE | 2019-09-29 18:48 | NUR ---
1845 hob elevated prepared for dc ds/rn
--- NOTE | 2019-09-29 19:00 | NUR ---
1900Pt meets DC criteria. left femoral site assessed for s/s of complication and presence of hematoma. Skin warm, dry, no discolor, and pulses present. IV removed from left hand. Distal tip appears intact. VS WNL. Pt denies pain, sob, or need at this time. Family at bedside Review of discharge paperwork and follow up instructions. verbalized understanding. Pt to wheelchair and transported to front of hospital. Transferred to private vehicle under own strength w/o incident with DC paperwork in hand. - ds/rn
--- NOTE | 2019-09-30 16:57 | Operative Report ---
DATE OF PROCEDURE: 09/29/2019 SURGEON: Laureano Corea MD DIAGNOSES: 1. Recent transient ischemic attack with findings of severe carotid stenosis with left carotid bifurcation and cavernous portion of distal ICA bilaterally by CTA. 2. Coronary artery disease, postop aortic valve bypass procedure. 3. Sick sinus syndrome with permanent pacemaker implantation. 4. Diabetes mellitus. 5. Chronic iron deficiency anemia. 6. Severe peripheral vascular disease. PROCEDURES PERFORMED: 1. Aortic arch study in the BENINESE and CAMACHO projection. 2. Selective bilateral carotid angiography. 3. Closure of the left femoral artery with Angio-Seal closure device model VIP. ANESTHESIA: 1. Local anesthetic to the left groin area. 2. Moderate sedation. COMPLICATIONS: None. BLOOD LOSS: None. SURGICAL ONCOLOGIST: None. INDICATIONS: This 64-year-old patient had a transient ischemic attack affecting his speech and left side of his face. He had several CAT scans done while he was in [place], [place], and was then evaluated by CTA angiogram of the cervical and cerebral arteries. Description was 80% stenosis of the left internal carotid artery at the carotid bifurcation and severe stenosis of the cavernous portion of the distal ICA bilaterally. The patient was now taken to the cardiac catheterization laboratory for further evaluation particularly the intracerebral circulation. The patient is very anxious and would like to have intervention either by stenting of the left internal carotid artery or carotid end arterectomy. DESCRIPTION OF PROCEDURE: After usual prepping and draping of the left inguinal area was infiltrated with local lidocaine, a micropuncture kit was utilized to approach the puncture of the left femoral artery. The guidewire was carefully directed into the left iliac stent and the procedure was then performed by placing 5-Bulgarian arterial sheath and inserting 5-Bulgarian angled pigtail catheter for aortic arch study, which was performed in the BENINESE and CAMACHO projections. This was then followed by replacing the pigtail catheter with an H1 diagnostic carotid angiography catheter for selective angiography of the right carotid artery and AP and lateral projection. The left common carotid artery was originating from right innominate artery and was approached using a Anzoder JB1 diagnostic catheter by [employer] which was then advanced into the distal portion of the left common carotid artery over 0.035 angled Glidewire. Selective angiography was then performed of left carotid artery in the AP, lateral, and left anterior oblique position. After completion of the diagnostic studies and removal of JB1 catheter angiography of the left groin area in the left anterior oblique position was performed. A 5-Bulgarian arterial sheath one was replaced with a 6-Bulgarian arterial sheath for closure of left femoral artery with Angio-Seal. Excellent hemostasis was achieved and the dressing was then applied and the patient was transferred to the observation area for planned discharge service in 3 to 5 hours after completion of the diagnostic study. Findings of the angiography: There was mild plaque formation in the subclavian arteries bilaterally as well as in the common carotid arteries. As mentioned above the left common carotid artery was originating from the right innominate artery. Selected angiography of right carotid artery showed 30% to 40% stenosis involving the right internal carotid artery at the bifurcation with right intracranial portion of the carotid artery showed only some minor plaques and there was no evidence of severe stenosis in the right cavernous portion as suggested by CTA. The left carotid artery showed 75% heavily calcified stenosis at the ostium of the left internal carotid artery with some mild plaque formation in the left external carotid artery. The stenosis of left ICA was best seen in the AP and oblique position that seemed to be eccentric since the lateral projection showed lesser degree of obstruction only about 60%. Again intracranial portion of the left carotid artery only showed some mild plaque formation and no severe stenosis also was documented in the cavernous portion which was suggested by this CTA. The anterior cerebral and middle cerebral arteries appeared to be normal with only minimal plaque formation. IMPRESSION: 1. Severe heavily calcified stenosis of the ostium of the left internal carotid artery. 2. Mild stenosis of the proximal portion of the right internal carotid artery. RECOMMENDATIONS: Because of a heavily calcified stenosis of the left ICA, I would recommend the left carotid endarterectomy and this was discussed with the patient and his family. MD ALMA Alvarez/MODL /[id number]
== END | disposition home or self-care (01) ==
LOC: CATH LAB 10:40
PROVIDERS: ATTEND Internal Medicine Cardiovascular Disease
DX: G45.8 Other transient cerebral ischemic attacks and related syndromes (principal); I73.9 Peripheral vascular disease, unspecified; I25.810 Atherosclerosis of coronary artery bypass graft(s) without angina pectoris; I49.5 Sick sinus syndrome; E11.9 Type 2 diabetes mellitus without complications; I10 Essential (primary) hypertension; D50.8 Other iron deficiency anemias; Z79.02 Long term (current) use of antithrombotics/antiplatelets; Z79.82 Long term (current) use of aspirin; Z79.84 Long term (current) use of oral hypoglycemic drugs; Z79.4 Long term (current) use of insulin; Z95.0 Presence of cardiac pacemaker; Z95.1 Presence of aortocoronary bypass graft
CPT/HCPCS: 36222; C1769 ×2; J0690; J2001; J2060; J2250; J3010; Q9967 ×2; 36221; 99152; 99153

== ENCOUNTER 2022-01-25 09:31 | Emergency (ER) | payer MEDICARE, OTHER ==
[~2022-01-25] VITALS: Ht 167.6 cm; Wt 81.6 kg
[~2022-01-25 09:31] MED LIST changes: -CEFAZOLIN SOD 1 GM VIAL ONE; -CLONIDINE HCL 0.1 MG TAB ONE; -FAMOTIDINE 20 MG TAB ONE; -FENTANYL CITRATE/PF 100MCG/2 ML INJ ONE; -HEPARIN SOD/SOD CHLORIDE 2,000 ML ONE; -IOPAMIDOL 300MG/ML 100 ML INFUS..BTL IV ONE; -IOPAMIDOL 300MG/ML 50ML INFUS..BTL IV ONE; -LIDOCAINE HCL 2% LOCAL 20 ML VIAL ONE; -LORAZEPAM INJ 2 MG/ML VIAL ONE; -MIDAZOLAM HCL 2 MG/2 ML VIAL ONE; -SODIUM CHLORIDE 0.9% 50ML 50 ML ONE
[2022-01-25] MEDS ORDERED: NITROGLYCERIN 2% OINT 1 GM PKT TOP STA (09:42)
[2022-01-25] MEDS ORDERED: ONDANSETRON HCL INJ 2MG/ML 2ML 2 MG/ML VIAL IV STA (10:00)
[2022-01-25] MEDS ORDERED: SODIUM CHLORIDE 0.9% 500ML 500 ML IV ONE (10:00)
[2022-01-25 10:22] LABS: BASOPHILS % 0.4 % (0.0-1.0); HEMATOCRIT 40.6 % (38.2-49.6); HEMOGLOBIN 13.5 g/dL (14.0-18.0); LYMPHOCYTES # (AUTO) 0.6 (1.0-3.2); LYMPHOCYTES % 12.5 % (18.0-39.1); MEAN CORPUSCULAR HGB CONC 33.3 g/dL (31-35); MEAN CORPUSCULAR VOLUME 90.2 fL (81-99); MONOCYTES # (AUTO) 0.5 (0.2-0.8); MONOCYTES % 10.7 % (4.4-11.3); NEUTROPHILS # (AUTO) 3.8 (2.1-6.9); PLATELET COUNT 170 x10e3/uL (140-360); RED CELL DISTRIBUTION WIDTH 13.7 % (11.7-14.4)
[2022-01-25 10:37] LABS: INR 1.05; PROTHROMBIN TIME 14.6 seconds (11.9-14.5)
[2022-01-25 10:38] LABS: ALBUMIN 3.8 g/dL (3.5-5.0); ALBUMIN/GLOBULIN RATIO 0.9 (0.8-2.0); ANION GAP 17.1 mmol/L (8-16); CALCIUM 8.9 mg/dL (8.4-10.2); CREATININE, SERUM 1.04 mg/dL (0.72-1.25); PARTIAL THROMBOPLASTIN TIME 30.2 seconds (23.8-35.5); POTASSIUM 5.1 mmol/L (3.5-5.1)
[2022-01-25 10:44] LABS: CREATINE KINASE MB 1.7 ng/mL (0-5.0)
[2022-01-25 11:49] LABS: COLOR,URINE YELLOW (YELLOW)
[2022-01-25 11:50] LABS: BACTERIA,URINE FEW /HPF; CLARITY,URINE CLEAR (CLEAR); EPITHELIAL CELLS,URINE FEW /LPF; KETONES,URINE 1+ (NEGATIVE); LEUKOCYTE ESTERASE ,URINE NEGATIVE (NEGATIVE); NITRITE,URINE NEGATIVE (NEGATIVE); PROTEIN,URINE DIPSTICK 2+ (NEGATIVE); RBC,URINE 0-5 /HPF (0-5); URINE UROBILINOGEN 1 mg/dL (0.2 - 1); WBC,URINE (MAN) 0-5 /HPF (0-5)
== END 2022-01-25 12:00 | disposition home or self-care (01) ==
LOC: ER 10:06
DX: R50.9 Fever, unspecified (principal); I10 Essential (primary) hypertension; I25.10 Atherosclerotic heart disease of native coronary artery without angina pectoris; E78.00 Pure hypercholesterolemia, unspecified; I73.9 Peripheral vascular disease, unspecified; D64.9 Anemia, unspecified; Z20.822 Contact with and (suspected) exposure to COVID-19; Z95.5 Presence of coronary angioplasty implant and graft; R94.31 Abnormal electrocardiogram [ECG] [EKG]
CPT/HCPCS: 36415; 70450; 71045; 80053; 81001; 82550; 82553; 83880; 84484; 85025; 85610; 85730; 87040; 93005; 99284; J2405; J7040; U0002

== ENCOUNTER 2022-06-01 13:05 | Emergency (ER) | payer MEDICARE, OTHER ==
[~2022-06-01] VITALS: Ht 167.6 cm; Wt 81.6 kg
[2022-06-01] MEDS ORDERED: SODIUM CHLORIDE 0.9% 1000ML 1,000 ML IV STA (13:18)
[2022-06-01 13:28] LABS: BASOPHILS % 0.5 % (0.0-1.0); EOSINOPHILS # (AUTO) 0.2 (0.0-0.4); EOSINOPHILS % 2.3 % (0.0-6.0); HEMATOCRIT 38.7 % (38.2-49.6); HEMOGLOBIN 12.9 g/dL (14.0-18.0); LYMPHOCYTES # (AUTO) 1.2 (1.0-3.2); LYMPHOCYTES % 15.2 % (18.0-39.1); MEAN CORPUSCULAR HEMOGLOBIN 29.5 pg (28-32); MEAN CORPUSCULAR HGB CONC 33.3 g/dL (31-35); MEAN CORPUSCULAR VOLUME 88.6 fL (81-99); MONOCYTES # (AUTO) 0.8 (0.2-0.8); MONOCYTES % 10.7 % (4.4-11.3); NEUTROPHILS # (AUTO) 5.6 (2.1-6.9); PLATELET COUNT 270 x10e3/uL (140-360); RED BLOOD COUNT 4.37 x10e6/uL (4.3-5.7); RED CELL DISTRIBUTION WIDTH 13.2 % (11.7-14.4)
[2022-06-01] MEDS ORDERED: IOPAMIDOL 370 MG/ML 100 ML INFUS..BTL INJ ONE (13:40)
[2022-06-01 13:42] LABS: ALBUMIN 4.1 g/dL (3.5-5.0); ALBUMIN/GLOBULIN RATIO 1.1 (0.8-2.0); ANION GAP 16.8 mmol/L (8-16); CALCIUM 9.6 mg/dL (8.4-10.2); CREATININE, SERUM 0.86 mg/dL (0.72-1.25); MAGNESIUM 1.8 MG/DL (1.3-2.1); POTASSIUM 4.8 mmol/L (3.5-5.1)
[2022-06-01 13:43] LABS: INR 0.89; PROTHROMBIN TIME 12.9 seconds (11.9-14.5)
[2022-06-01 13:58] LABS: AMPHETAMINES SCREEN,URINE NEGATIVE (NEGATIVE); BENZODIAZEPINES SCREEN,URINE NEGATIVE (NEGATIVE); CLARITY,URINE CLEAR (CLEAR); COLOR,URINE YELLOW (YELLOW); PHENCYCLIDINE SCREEN,URINE NEGATIVE (NEGATIVE)
[2022-06-01 13:59] LABS: KETONES,URINE NEGATIVE (NEGATIVE); LEUKOCYTE ESTERASE ,URINE NEGATIVE (NEGATIVE); NITRITE,URINE NEGATIVE (NEGATIVE); PROTEIN,URINE DIPSTICK NEGATIVE (NEGATIVE); URINE UROBILINOGEN 0.2 mg/dL (0.2 - 1)
[2022-06-01 14:10] LABS: SALICYLATE < 5.0 mg/dL (0-30)
[2022-06-01 14:22] LABS: BACTERIA,URINE FEW /HPF; EPITHELIAL CELLS,URINE FEW /LPF; RBC,URINE 0-5 /HPF (0-5); WBC,URINE (MAN) 0-5 /HPF (0-5)
[2022-06-01] MEDS ORDERED: ASPIRIN 300 MG SUPP PR STA (14:41)
[2022-06-01] MEDS ORDERED: ASPIRIN 325 MG TAB ONE (15:48)
== END 2022-06-01 16:12 | disposition other institution (70) ==
LOC: ER 13:15
DX: R41.82 Altered mental status, unspecified (principal); I63.9 Cerebral infarction, unspecified; R47.01 Aphasia; E11.65 Type 2 diabetes mellitus with hyperglycemia; I10 Essential (primary) hypertension; I25.10 Atherosclerotic heart disease of native coronary artery without angina pectoris; E78.00 Pure hypercholesterolemia, unspecified; Z95.1 Presence of aortocoronary bypass graft; Z95.810 Presence of automatic (implantable) cardiac defibrillator; Z95.5 Presence of coronary angioplasty implant and graft
CPT/HCPCS: 36415; 70450; 70496; 70498; 71045; 80053; 80307; 80329 ×2; 81001; 82550; 82553; 82948; 83735; 83880; 84484; 85025; 85610; 85730; 87086; 93005; 99285; Q9967; 0223U

== ENCOUNTER → 2022-07-18 | Outpatient (RCR) | payer MEDICARE, OTHER | LOC: WCC 07-16 10:42 | PROVIDERS: ATTEND Family Medicine | DX: E11.621 Type 2 diabetes mellitus with foot ulcer (principal); L97.522 Non-pressure chronic ulcer of other part of left foot with fat layer exposed; I66.9 Occlusion and stenosis of unspecified cerebral artery; I73.9 Peripheral vascular disease, unspecified; R60.0 Localized edema; I67.82 Cerebral ischemia; I48.91 Unspecified atrial fibrillation; I10 Essential (primary) hypertension; E78.5 Hyperlipidemia, unspecified | CPT/HCPCS: 87071; 87075; 87186; 87205; 96372 ==

== ENCOUNTER → 2022-07-25 | Outpatient (CLI) | payer MEDICARE, OTHER ==
[~2022-07-25] MED LIST changes: +IOPAMIDOL 370 MG/ML 100 ML INFUS..BTL INJ ONE; +SODIUM CHLORIDE 0.9% 100 ML ONE
[2022-07-25 09:59] LABS: CREATININE, SERUM 0.85 mg/dL (0.72-1.25)
== END ==
LOC: CT 07:25
PROVIDERS: ATTEND Family Medicine
DX: E11.621 Type 2 diabetes mellitus with foot ulcer (principal); L97.522 Non-pressure chronic ulcer of other part of left foot with fat layer exposed
CPT/HCPCS: 36415; 73701; 73706; 82565; 84520; J7050; Q9967

== ENCOUNTER 2022-07-30 14:33 | Inpatient (IN) | payer MEDICARE, OTHER ==
[2022-07-30] VITALS (7 sets, daily range): BP systolic 103–135; BP diastolic 40–53
[~2022-07-30] VITALS: Ht 167.6 cm; Wt 81.6 kg
[~2022-07-30 14:33] MED LIST changes: -IOPAMIDOL 370 MG/ML 100 ML INFUS..BTL INJ ONE; -SODIUM CHLORIDE 0.9% 100 ML ONE
[2022-07-30] MEDS ORDERED: PLAVIX75 MG PO (15:48)
[2022-07-30] MEDS ORDERED: AMLODIPINE BESYL5 MG PO (15:48)
[2022-07-30] MEDS ORDERED: SODIUM CHLORIDE 0.9% 250ML 250 ML ONE (17:26)
[2022-07-30] MEDS ORDERED: HYDRALAZINE HCL 20 MG/ML VIAL IV PRN (18:00)
[2022-07-30] MEDS ORDERED: ONDANSETRON HCL INJ 2MG/ML 2ML 2 MG/ML VIAL IV PRN (18:00)
[2022-07-30] MEDS ORDERED: POLYETHYLENE GLYCOL 3350 17 GM PACK PO PRN (18:00)
[2022-07-30] MEDS: ACETAMINOPHEN 325 MG TAB PO PRN (18:11)
[2022-07-30 18:29] LABS: BASOPHILS % 0.3 % (0.0-1.0); EOSINOPHILS # (AUTO) 0.1 (0.0-0.4); EOSINOPHILS % 1.1 % (0.0-6.0); HEMATOCRIT 31.7 % (38.2-49.6); HEMOGLOBIN 10.7 g/dL (14.0-18.0); LYMPHOCYTES % 9.3 % (18.0-39.1); MEAN CORPUSCULAR HEMOGLOBIN 29.2 pg (28-32); MEAN CORPUSCULAR HGB CONC 33.8 g/dL (31-35); MEAN CORPUSCULAR VOLUME 86.6 fL (81-99); MONOCYTES # (AUTO) 1.2 (0.2-0.8); MONOCYTES % 11.1 % (4.4-11.3); NEUTROPHILS # (AUTO) 8.4 (2.1-6.9); NEUTROPHILS % 77.6 % (38.7-80.0); PLATELET COUNT 337 x10e3/uL (140-360); RED BLOOD COUNT 3.66 x10e6/uL (4.3-5.7); RED CELL DISTRIBUTION WIDTH 13.1 % (11.7-14.4)
[2022-07-30 18:52] LABS: CALCIUM 9.9 mg/dL (8.4-10.2); CREATININE, SERUM 0.96 mg/dL (0.72-1.25); MAGNESIUM 1.8 MG/DL (1.3-2.1); PHOSPHORUS 2.8 MG/DL (2.3-4.7)
[2022-07-30] MEDS: ATORVASTATIN 20 MG TAB PO SCH (20:17)
[2022-07-30] MEDS: TEMAZEPAM 15 MG CAP PO PRN (20:41)
[2022-07-30] MEDS: INSULIN GLARGINE 100 UNITS/ML VIAL SQ SCH (20:45)
[2022-07-31] VITALS (7 sets, daily range): BP systolic 105–135; BP diastolic 49–64
[2022-07-31 04:59] LABS: CLARITY,URINE CLEAR (CLEAR); COLOR,URINE YELLOW (YELLOW); KETONES,URINE NEGATIVE (NEGATIVE); LEUKOCYTE ESTERASE ,URINE NEGATIVE (NEGATIVE); NITRITE,URINE NEGATIVE (NEGATIVE); PROTEIN,URINE DIPSTICK NEGATIVE (NEGATIVE); URINE UROBILINOGEN 0.2 mg/dL (0.2 - 1)
[2022-07-31 05:04] LABS: WBC,URINE (MAN) 0-5 /HPF (0-5)
[2022-07-31 05:05] LABS: BACTERIA,URINE RARE /HPF; EPITHELIAL CELLS,URINE RARE /LPF
[2022-07-31 06:02] LABS: BASOPHILS % 0.3 % (0.0-1.0); EOSINOPHILS # (AUTO) 0.2 (0.0-0.4); EOSINOPHILS % 1.7 % (0.0-6.0); HEMATOCRIT 33.1 % (38.2-49.6); HEMOGLOBIN 10.9 g/dL (14.0-18.0); LYMPHOCYTES # (AUTO) 0.9 (1.0-3.2); LYMPHOCYTES % 8.3 % (18.0-39.1); MEAN CORPUSCULAR HEMOGLOBIN 28.7 pg (28-32); MEAN CORPUSCULAR HGB CONC 32.9 g/dL (31-35); MEAN CORPUSCULAR VOLUME 87.1 fL (81-99); MONOCYTES # (AUTO) 1.2 (0.2-0.8); MONOCYTES % 11.5 % (4.4-11.3); NEUTROPHILS # (AUTO) 8.1 (2.1-6.9); NEUTROPHILS % 77.8 % (38.7-80.0); PLATELET COUNT 332 x10e3/uL (140-360); RED CELL DISTRIBUTION WIDTH 13.1 % (11.7-14.4)
[2022-07-31 06:33] LABS: ALBUMIN 3.2 g/dL (3.5-5.0); ALBUMIN/GLOBULIN RATIO 0.8 (0.8-2.0); ANION GAP 16.9 mmol/L (8-16); CALCIUM 9.6 mg/dL (8.4-10.2); CHOL/HDL RATIO 3.5 (3.9-4.7); CREATININE, SERUM 0.9 mg/dL (0.72-1.25); MAGNESIUM 1.9 MG/DL (1.3-2.1); PHOSPHORUS 3.4 MG/DL (2.3-4.7); POTASSIUM 3.9 mmol/L (3.5-5.1)
[2022-07-31 06:41] LABS: THYROID STIMULATING HORMONE 1.145 uIU/mL (0.350-4.940)
[2022-07-31] MEDS: CLOPIDOGREL BISULFATE 75 MG TAB PO SCH (08:42)
[2022-07-31] MEDS: SOTALOL HCL 80 MG TAB PO SCH ×2 (08:43→16:32)
[2022-07-31] MEDS: AMLODIPINE BESYLATE 5 MG TAB PO SCH (08:43)
[2022-07-31] MEDS: METFORMIN HCL 500 MG TAB PO SCH ×2 (08:43→16:32)
[2022-07-31] MEDS: DOCUSATE SODIUM 100 MG CAP PO SCH ×2 (08:43→16:39)
[2022-07-31] MEDS: QUINAPRIL HCL 20 MG TAB PO SCH (08:43)
[2022-07-31] MEDS: ASPIRIN 81 MG CHEW TAB PO SCH (08:43)
[2022-07-31] MEDS: FAMOTIDINE 20 MG/2 ML VIAL IV SCH ×2 (08:44→16:33)
[2022-07-31] MEDS: ACETAMINOPHEN 325 MG TAB PO PRN (11:48)
[2022-07-31] MEDS: ATORVASTATIN 20 MG TAB PO SCH (21:58)
[2022-07-31] MEDS: TEMAZEPAM 15 MG CAP PO PRN (23:50)
[2022-08-01] VITALS (7 sets, daily range): BP systolic 127–143; BP diastolic 57–66
[2022-08-01] MEDS: METFORMIN HCL 500 MG TAB PO SCH ×3 (08:00→17:36)
[2022-08-01] MEDS: ASPIRIN 81 MG CHEW TAB PO SCH (09:00)
[2022-08-01] MEDS: INSULIN GLARGINE 100 UNITS/ML VIAL SQ SCH (09:00)
[2022-08-01] MEDS: CLOPIDOGREL BISULFATE 75 MG TAB PO SCH (09:00)
[2022-08-01] MEDS: SOTALOL HCL 80 MG TAB PO SCH ×2 (09:29→17:37)
[2022-08-01] MEDS: QUINAPRIL HCL 20 MG TAB PO SCH (09:30)
[2022-08-01] MEDS: DOCUSATE SODIUM 100 MG CAP PO SCH ×2 (09:31→17:36)
[2022-08-01] MEDS: AMLODIPINE BESYLATE 5 MG TAB PO SCH (09:31)
[2022-08-01] MEDS: FAMOTIDINE 20 MG/2 ML VIAL IV SCH (09:32)
[2022-08-01] MEDS ORDERED: ONDANSETRON HCL 4 MG ORAL DISINTEGRATING TAB PO PRN (11:15)
[2022-08-01] MEDS: ACETAMINOPHEN 325 MG TAB PO PRN (12:02)
[2022-08-01] MEDS: COLLAGENASE 5 GM TUBE TP SCH (17:36)
[2022-08-01] MEDS: FAMOTIDINE 20 MG TAB PO SCH (17:37)
[2022-08-01] MEDS: SODIUM CHLORIDE 0.9% 1000ML 1,000 ML IV SCH ×2 (18:45→20:48)
[2022-08-01] MEDS: ATORVASTATIN 20 MG TAB PO SCH (20:47)
[2022-08-01] MEDS: TEMAZEPAM 15 MG CAP PO PRN (20:50)
[2022-08-02] VITALS (9 sets, daily range): BP systolic 114–149; BP diastolic 55–63
[2022-08-02 05:48] LABS: BASOPHILS # (AUTO) 0.1 (0.0-0.1); BASOPHILS % 0.5 % (0.0-1.0); EOSINOPHILS # (AUTO) 0.2 (0.0-0.4); EOSINOPHILS % 2.4 % (0.0-6.0); HEMATOCRIT 33.3 % (38.2-49.6); HEMOGLOBIN 10.4 g/dL (14.0-18.0); LYMPHOCYTES # (AUTO) 1.2 (1.0-3.2); LYMPHOCYTES % 12.7 % (18.0-39.1); MEAN CORPUSCULAR HEMOGLOBIN 28.9 pg (28-32); MEAN CORPUSCULAR HGB CONC 31.2 g/dL (31-35); MEAN CORPUSCULAR VOLUME 92.5 fL (81-99); MONOCYTES # (AUTO) 0.9 (0.2-0.8); MONOCYTES % 9.6 % (4.4-11.3); NEUTROPHILS # (AUTO) 7.1 (2.1-6.9); NEUTROPHILS % 74.5 % (38.7-80.0); PLATELET COUNT 373 x10e3/uL (140-360); RED CELL DISTRIBUTION WIDTH 12.7 % (11.7-14.4)
[2022-08-02 06:10] LABS: ALBUMIN/GLOBULIN RATIO 0.8 (0.8-2.0); CALCIUM 9.2 mg/dL (8.4-10.2); CREATININE, SERUM 0.84 mg/dL (0.72-1.25)
[2022-08-02] MEDS: INSULIN GLARGINE 100 UNITS/ML VIAL SQ SCH (09:00)
[2022-08-02] MEDS: QUINAPRIL HCL 20 MG TAB PO SCH (09:36)
[2022-08-02] MEDS: METFORMIN HCL 500 MG TAB PO SCH ×2 (09:36→17:11)
[2022-08-02] MEDS: AMLODIPINE BESYLATE 5 MG TAB PO SCH (09:36)
[2022-08-02] MEDS: CLOPIDOGREL BISULFATE 75 MG TAB PO SCH (09:36)
[2022-08-02] MEDS: ASPIRIN 81 MG CHEW TAB PO SCH (09:36)
[2022-08-02] MEDS: COLLAGENASE 5 GM TUBE TP SCH (09:37)
[2022-08-02] MEDS: DOCUSATE SODIUM 100 MG CAP PO SCH ×2 (09:37→17:11)
[2022-08-02] MEDS: FAMOTIDINE 20 MG TAB PO SCH ×2 (09:37→17:10)
[2022-08-02] MEDS: SOTALOL HCL 80 MG TAB PO SCH ×2 (09:38→17:11)
[2022-08-02] MEDS: SODIUM CHLORIDE 0.9% 1000ML 1,000 ML IV SCH (12:34)
[2022-08-02] MEDS: ACETAMINOPHEN 325 MG TAB PO PRN (17:11)
[2022-08-02] MEDS: ATORVASTATIN 20 MG TAB PO SCH (20:24)
[2022-08-02] MEDS: TEMAZEPAM 15 MG CAP PO PRN (22:34)
[2022-08-03] VITALS (7 sets, daily range): BP systolic 113–164; BP diastolic 51–67
[2022-08-03] MEDS: SODIUM CHLORIDE 0.9% 1000ML 1,000 ML IV SCH ×2 (02:55→15:23)
[2022-08-03] MEDS: DOCUSATE SODIUM 100 MG CAP PO SCH ×2 (08:44→16:34)
[2022-08-03] MEDS: SOTALOL HCL 80 MG TAB PO SCH ×2 (08:45→16:34)
[2022-08-03] MEDS: ASPIRIN 81 MG CHEW TAB PO SCH ×2 (08:45→08:47)
[2022-08-03] MEDS: FAMOTIDINE 20 MG TAB PO SCH ×2 (08:45→16:34)
[2022-08-03] MEDS: CLOPIDOGREL BISULFATE 75 MG TAB PO SCH (08:46)
[2022-08-03] MEDS: QUINAPRIL HCL 20 MG TAB PO SCH (08:47)
[2022-08-03] MEDS: METFORMIN HCL 500 MG TAB PO SCH ×2 (08:47→16:34)
[2022-08-03] MEDS: AMLODIPINE BESYLATE 5 MG TAB PO SCH (08:48)
[2022-08-03] MEDS: INSULIN GLARGINE 100 UNITS/ML VIAL SQ SCH ×2 (08:48→21:00)
[2022-08-03] MEDS: COLLAGENASE 5 GM TUBE TP SCH (08:48)
[2022-08-03] MEDS: TEMAZEPAM 15 MG CAP PO PRN (21:02)
[2022-08-03] MEDS: ATORVASTATIN 20 MG TAB PO SCH (21:02)
[2022-08-03] MEDS: ACETAMINOPHEN 325 MG TAB PO PRN (21:02)
[2022-08-04] VITALS (27 sets, daily range): BP systolic 108–175; BP diastolic 47–116
[2022-08-04] MEDS: SODIUM CHLORIDE 0.9% 1000ML 1,000 ML IV SCH ×2 (05:15→16:00)
[2022-08-04 06:16] LABS: BASOPHILS # (AUTO) 0.1 (0.0-0.1); BASOPHILS % 0.5 % (0.0-1.0); EOSINOPHILS # (AUTO) 0.3 (0.0-0.4); EOSINOPHILS % 3.5 % (0.0-6.0); HEMATOCRIT 32.2 % (38.2-49.6); HEMOGLOBIN 9.8 g/dL (14.0-18.0); LYMPHOCYTES # (AUTO) 1.1 (1.0-3.2); LYMPHOCYTES % 12.1 % (18.0-39.1); MEAN CORPUSCULAR HEMOGLOBIN 28.6 pg (28-32); MEAN CORPUSCULAR HGB CONC 30.4 g/dL (31-35); MEAN CORPUSCULAR VOLUME 93.9 fL (81-99); MONOCYTES # (AUTO) 1.1 (0.2-0.8); MONOCYTES % 11.7 % (4.4-11.3); NEUTROPHILS # (AUTO) 6.5 (2.1-6.9); NEUTROPHILS % 71.9 % (38.7-80.0); PLATELET COUNT 390 x10e3/uL (140-360); RED BLOOD COUNT 3.43 x10e6/uL (4.3-5.7); RED CELL DISTRIBUTION WIDTH 13.1 % (11.7-14.4)
[2022-08-04 06:38] LABS: ANION GAP 12.7 mmol/L (8-16); CALCIUM 9.5 mg/dL (8.4-10.2); CREATININE, SERUM 0.79 mg/dL (0.72-1.25); POTASSIUM 3.7 mmol/L (3.5-5.1)
[2022-08-04] MEDS: FAMOTIDINE 20 MG TAB PO SCH ×2 (07:30→16:49)
[2022-08-04] MEDS ORDERED: HEPARIN SOD (PORCINE) 1000 UNIT/ML 30ML ONE (07:59)
[2022-08-04] MEDS: METFORMIN HCL 500 MG TAB PO SCH ×2 (08:00→16:48)
[2022-08-04] MEDS ORDERED: HEPARIN SOD/SOD CHLORIDE 2,000 ML ONE (08:00)
[2022-08-04] MEDS ORDERED: LIDOCAINE HCL 2% LOCAL INJ 5 ML SDV VIAL INJ ONE (08:00)
[2022-08-04] MEDS ORDERED: SODIUM CHLORIDE 0.9% 1000ML 1,000 ML ONE (08:00)
[2022-08-04] MEDS ORDERED: IOPAMIDOL 370 MG/ML 100 ML INFUS..BTL INJ ONE (08:00)
[2022-08-04] MEDS ORDERED: NITROGLYCERIN/D5W 200 MCG/ML 250 ML ONE (08:01)
[2022-08-04] MEDS ORDERED: IOPAMIDOL 300MG/ML 100 ML INFUS..BTL IV ONE (08:01)
[2022-08-04] MEDS ORDERED: MIDAZOLAM HCL 2 MG/2 ML VIAL ONE ×2 (08:17→09:16)
[2022-08-04] MEDS ORDERED: FENTANYL CITRATE/PF 100MCG/2 ML INJ ONE (08:17)
[2022-08-04] MEDS: COLLAGENASE 5 GM TUBE TP SCH (09:00)
[2022-08-04] MEDS: AMLODIPINE BESYLATE 5 MG TAB PO SCH (09:00)
[2022-08-04] MEDS: QUINAPRIL HCL 20 MG TAB PO SCH (09:00)
[2022-08-04] MEDS: ASPIRIN 81 MG CHEW TAB PO SCH (09:00)
[2022-08-04] MEDS: DOCUSATE SODIUM 100 MG CAP PO SCH ×2 (09:00→16:49)
[2022-08-04] MEDS: SOTALOL HCL 80 MG TAB PO SCH ×2 (09:00→16:49)
[2022-08-04] MEDS ORDERED: SODIUM CHLORIDE 0.9% 1000ML 1,000 ML IV SCH (09:45)
[2022-08-04] MEDS ORDERED: CLOPIDOGREL BISULFATE 75 MG TAB ONE (09:54)
[2022-08-04] MEDS ORDERED: ASPIRIN 325 MG TAB ONE (09:54)
[2022-08-04] MEDS ORDERED: HYDRALAZINE HCL 20 MG/ML VIAL ONE (12:02)
[2022-08-04] MEDS ORDERED: Morphine 4mg INJECTION 4 MG/ML INJ IV ONE (14:45)
[2022-08-04] MEDS ORDERED: Morphine 4mg INJECTION 4 MG/ML INJ IV PRN (14:45)
[2022-08-04] MEDS ORDERED: Morphine 2mg Syringe 2 MG/ML SYR IV PRN (14:45)
[2022-08-04] MEDS: ATORVASTATIN 20 MG TAB PO SCH (20:36)
[2022-08-04] MEDS: INSULIN GLARGINE 100 UNITS/ML VIAL SQ SCH (20:42)
[2022-08-05] MEDS: SODIUM CHLORIDE 0.9% 1000ML 1,000 ML IV SCH ×3 (04:56→22:00)
[2022-08-05 06:03] LABS: BASOPHILS # (AUTO) 0.1 (0.0-0.1); BASOPHILS % 0.5 % (0.0-1.0); EOSINOPHILS # (AUTO) 0.3 (0.0-0.4); EOSINOPHILS % 3.1 % (0.0-6.0); HEMOGLOBIN 9.4 g/dL (14.0-18.0); MEAN CORPUSCULAR HEMOGLOBIN 28.9 pg (28-32); MEAN CORPUSCULAR HGB CONC 32.4 g/dL (31-35); MEAN CORPUSCULAR VOLUME 89.2 fL (81-99); MONOCYTES # (AUTO) 1.1 (0.2-0.8); MONOCYTES % 11.9 % (4.4-11.3); NEUTROPHILS # (AUTO) 6.7 (2.1-6.9); NEUTROPHILS % 73.2 % (38.7-80.0); PLATELET COUNT 394 x10e3/uL (140-360); RED BLOOD COUNT 3.25 x10e6/uL (4.3-5.7); RED CELL DISTRIBUTION WIDTH 13.2 % (11.7-14.4)
[2022-08-05 06:19] VITALS: BP 126/56
[2022-08-05 06:31] LABS: ANION GAP 13.9 mmol/L (8-16); CALCIUM 9.1 mg/dL (8.4-10.2); CREATININE, SERUM 0.88 mg/dL (0.72-1.25); POTASSIUM 3.9 mmol/L (3.5-5.1)
[2022-08-05 06:51] LABS: MAGNESIUM 1.6 MG/DL (1.3-2.1); PHOSPHORUS 3.3 MG/DL (2.3-4.7)
[2022-08-05 08:26] VITALS: BP 111/98
[2022-08-05 08:30] VITALS: BP 111/98
[2022-08-05] MEDS ORDERED: MAGNESIUM SULFATE 2GM/50ML 50 ML IV ONE (09:30)
[2022-08-05] MEDS: FAMOTIDINE 20 MG TAB PO SCH ×2 (09:54→15:57)
[2022-08-05] MEDS: QUINAPRIL HCL 20 MG TAB PO SCH (09:54)
[2022-08-05] MEDS: METFORMIN HCL 500 MG TAB PO SCH ×2 (09:55→17:19)
[2022-08-05] MEDS: ACETAMINOPHEN 325 MG TAB PO PRN (09:55)
[2022-08-05] MEDS: ASPIRIN 81 MG CHEW TAB PO SCH (09:55)
[2022-08-05] MEDS: SOTALOL HCL 80 MG TAB PO SCH ×2 (09:55→17:19)
[2022-08-05] MEDS: AMLODIPINE BESYLATE 5 MG TAB PO SCH (09:55)
[2022-08-05] MEDS: CLOPIDOGREL BISULFATE 75 MG TAB PO SCH (09:56)
[2022-08-05] MEDS: DOCUSATE SODIUM 100 MG CAP PO SCH ×2 (09:56→17:19)
[2022-08-05] MEDS: COLLAGENASE 5 GM TUBE TP SCH (09:56)
[2022-08-05] MEDS ORDERED: Docusate Sodium PO (10:01)
[2022-08-05] MEDS ORDERED: ACETAMINOPHEN325 M1 PO (10:01)
[2022-08-05] MEDS ORDERED: ZOSYN 3.373.375 GM/1 IV (10:01)
[2022-08-05] MEDS ORDERED: ONDANSETRON ODT4 MG PO (10:01)
[2022-08-05 12:35] VITALS: BP 146/58
[2022-08-05 16:20] VITALS: BP 131/54
[2022-08-05 20:00] VITALS: BP 145/66
[2022-08-05] MEDS: ATORVASTATIN 20 MG TAB PO SCH ×2 (20:09→22:28)
[2022-08-05] MEDS: INSULIN GLARGINE 100 UNITS/ML VIAL SQ SCH ×2 (20:10→22:26)
[2022-08-05] MEDS: TEMAZEPAM 15 MG CAP PO PRN (22:31)
[2022-08-06] VITALS: BP_SYST 135; BP_SYST 153; BP_DIAS 55; BP_DIAS 60
[2022-08-06 03:51] VITALS: BP 153/60
[2022-08-06] MEDS: SODIUM CHLORIDE 0.9% 1000ML 1,000 ML IV SCH (08:00)
[2022-08-06 08:38] VITALS: BP 119/74
[2022-08-06] MEDS: ASPIRIN 81 MG CHEW TAB PO SCH (08:40)
[2022-08-06] MEDS: CLOPIDOGREL BISULFATE 75 MG TAB PO SCH (08:40)
[2022-08-06] MEDS: FAMOTIDINE 20 MG TAB PO SCH (08:41)
[2022-08-06] MEDS: DOCUSATE SODIUM 100 MG CAP PO SCH (08:41)
[2022-08-06] MEDS: AMLODIPINE BESYLATE 5 MG TAB PO SCH (08:41)
[2022-08-06] MEDS: METFORMIN HCL 500 MG TAB PO SCH (08:42)
[2022-08-06 10:01] VITALS: BP 119/74
== END 2022-08-06 10:10 | disposition home or self-care (01) | DRG 253 ==
LOC: MED/SURG2 14:55
PROVIDERS: ADMIT Internal Medicine; ATTEND Internal Medicine
PROC: 02HV33Z Insertion of Infusion Device into Superior Vena Cava, Percutaneous Approach (ICD-10-PCS; principal; 2022-07-30)
PROC: 047D341 Dilation of Left Common Iliac Artery with Drug-eluting Intraluminal Device, using Drug-Coated Balloon, Percutaneous Approach (ICD-10-PCS; 2022-08-04)
PROC: 047J3Z1 Dilation of Left External Iliac Artery using Drug-Coated Balloon, Percutaneous Approach (ICD-10-PCS; 2022-08-04)
DX: E11.51 Type 2 diabetes mellitus with diabetic peripheral angiopathy without gangrene (principal); L03.116 Cellulitis of left lower limb; T82.856A Stenosis of peripheral vascular stent, initial encounter; L97.429 Non-pressure chronic ulcer of left heel and midfoot with unspecified severity; Z95.811 Presence of heart assist device; E11.621 Type 2 diabetes mellitus with foot ulcer; L97.529 Non-pressure chronic ulcer of other part of left foot with unspecified severity; I11.9 Hypertensive heart disease without heart failure; E11.42 Type 2 diabetes mellitus with diabetic polyneuropathy; B96.1 Klebsiella pneumoniae [K. pneumoniae] as the cause of diseases classified elsewhere; B96.5 Pseudomonas (aeruginosa) (mallei) (pseudomallei) as the cause of diseases classified elsewhere; B95.2 Enterococcus as the cause of diseases classified elsewhere; E11.65 Type 2 diabetes mellitus with hyperglycemia; I25.10 Atherosclerotic heart disease of native coronary artery without angina pectoris; D64.9 Anemia, unspecified; I48.0 Paroxysmal atrial fibrillation; E78.5 Hyperlipidemia, unspecified; F10.90 Alcohol use, unspecified, uncomplicated; Z79.4 Long term (current) use of insulin; Z95.1 Presence of aortocoronary bypass graft; Z95.820 Peripheral vascular angioplasty status with implants and grafts; I25.2 Old myocardial infarction; Z82.3 Family history of stroke; Z82.49 Family history of ischemic heart disease and other diseases of the circulatory system; Z80.52 Family history of malignant neoplasm of bladder; Z86.711 Personal history of pulmonary embolism; Z86.73 Personal history of transient ischemic attack (TIA), and cerebral infarction without residual deficits; Z86.16 Personal history of COVID-19; Z87.891 Personal history of nicotine dependence; Z20.822 Contact with and (suspected) exposure to COVID-19; E83.42 Hypomagnesemia; Y71.3 Surgical instruments, materials and cardiovascular devices (including sutures) associated with adverse incidents
CPT/HCPCS: 36415; 36569; 37220; 37221; 71045; 75630; 76937; 80048; 80053; 80061; 81001; 82948; 83036; 83735; 84100; 84443; 85025; 93005; 94799; 96361; 99152; 99153; 99251; C1725; C1766; C1769; C1874; C1887; C1894; J0360; J1644; J1815; J2001; J2250; J2270; J2543; J3010; J3475; J7030; J7050; Q9967

== ENCOUNTER 2022-08-15 11:48 | Outpatient (RCR) | payer MEDICARE, OTHER ==
[~2022-08-15 11:48] MED LIST changes: +ACETAMINOPHEN325 M1 PO; +AMLODIPINE BESYL5 MG PO; +CADEXOMER IODINE 30 GM TUBE ONE; +CEFTRIAXONE 1 GM VIAL ONE; +COLLAGENASE OINTMENT 30 GM TUBE ONE; +Docusate Sodium PO; +LIDOCAINE VISC 2% SOLN 15 ML UDC ONE; +MUPIROCIN 2% OINT 22 GM TUBE ONE; +ONDANSETRON ODT4 MG PO; +ZOSYN 3.373.375 GM/1 IV
== END 2022-08-18 ==
LOC: WCC 11:48
PROVIDERS: ATTEND Family Medicine
DX: E11.621 Type 2 diabetes mellitus with foot ulcer (principal); L97.522 Non-pressure chronic ulcer of other part of left foot with fat layer exposed; R60.0 Localized edema; I73.9 Peripheral vascular disease, unspecified; I67.82 Cerebral ischemia; I66.9 Occlusion and stenosis of unspecified cerebral artery; I10 Essential (primary) hypertension; I48.91 Unspecified atrial fibrillation; E78.5 Hyperlipidemia, unspecified
CPT/HCPCS: 11042; 73660; 96372 ×2; 97602 ×4; 99213 ×7; J0696

== ENCOUNTER → 2022-09-17 | Outpatient (RCR) | payer MEDICARE, OTHER ==
[~2022-09-17] MED LIST changes: -CEFTRIAXONE 1 GM VIAL ONE; +FUROSEMIDE INJ 10 MG/ML 4 ML VIAL ONE; +LIDOCAINE/PRILOCAINE 2.5-2.5% KIT ONE
== END ==
LOC: WCC 08-20 08:33
PROVIDERS: ATTEND Family Medicine
DX: E11.621 Type 2 diabetes mellitus with foot ulcer (principal); L97.526 Non-pressure chronic ulcer of other part of left foot with bone involvement without evidence of necrosis; L03.032 Cellulitis of left toe; I73.9 Peripheral vascular disease, unspecified; R60.0 Localized edema; I67.82 Cerebral ischemia; I10 Essential (primary) hypertension; E78.5 Hyperlipidemia, unspecified; I48.91 Unspecified atrial fibrillation; I66.9 Occlusion and stenosis of unspecified cerebral artery; B96.89 Other specified bacterial agents as the cause of diseases classified elsewhere
CPT/HCPCS: 11042 ×3; 36415; 97602 ×4; 99212; 99213 ×7; J1940